=== PATIENT | female | born 1960 | race Caucasian/White ===

== ENCOUNTER 2016-09-24 17:31 | Emergency (ER) | payer OTHER, MEDICAID ==
[~2016-09-24] VITALS: Ht 167.6 cm; Wt 70.3 kg
[~2016-09-24 17:31] MED LIST: ALB5IS NEB; CEPH-37 PO; COEN100C37 PO; FLUT100M7 IN; MULT-690 PO
[2016-09-24 20:30] VITALS: BP 131/96
== END 2016-09-24 21:20 | disposition home or self-care (01) ==
LOC: ER 17:40
DX: S20.212A Contusion of left front wall of thorax, initial encounter (principal); F12.10 Cannabis abuse, uncomplicated; J44.9 Chronic obstructive pulmonary disease, unspecified; X58.XXXA Exposure to other specified factors, initial encounter; Y93.89 Activity, other specified; Y92.89 Other specified places as the place of occurrence of the external cause; Y99.8 Other external cause status; Z79.899 Other long term (current) drug therapy
CPT/HCPCS: 71101; 93005

== ENCOUNTER 2018-12-16 08:03 | Inpatient (IN) | payer OTHER, MEDICAID | END 2018-12-19 18:45 | disposition home or self-care (01) | LOC: EAST 12-17 18:46 → ER 08:03 → TELE 08:04 → TELE-EAST 13:29 | DX: E44.0 Moderate protein-calorie malnutrition (principal); C16.9 Malignant neoplasm of stomach, unspecified; E86.0 Dehydration; T45.1X5A Adverse effect of antineoplastic and immunosuppressive drugs, initial encounter; B19.20 Unspecified viral hepatitis C without hepatic coma; K74.60 Unspecified cirrhosis of liver; D72.819 Decreased white blood cell count, unspecified ==